=== PATIENT | male | born 1940 | race Caucasian/White ===

== ENCOUNTER → 2016-09-27 | Outpatient (CLI) | payer MEDICARE ==
[2016-09-27 13:12] LABS: Hemoglobin A1C 9.6 % (4.2-6.1)
== END ==
LOC: LABWHC1 09:03
PROVIDERS: ATTEND Internal Medicine Geriatric Medicine
DX: E11.9 Type 2 diabetes mellitus without complications (principal)
CPT/HCPCS: 36415; 83036

== ENCOUNTER → 2017-02-12 | Outpatient (CLI) | payer MEDICARE ==
[2017-02-12 15:46] LABS: ALT 37 U/L (21-72); AST 22 U/L (17-59); Anion Gap 10 mmol/L; Blood Urea Nitrogen 20 mg/dL (9-20); Calcium 8.8 mg/dL (8.4-10.2); Carbon Dioxide 22 mmol/L (22-30); Chloride 103 mmol/L (98-107); Non-African American GFR(MDRD) >60 (>60 ml/min/1.73 sqM); Potassium 4.9 mmol/L (3.5-5.1); Sodium 135 mmol/L (137-145); Total Bilirubin 0.5 mg/dL (0.2-1.3); Total Protein 6.2 g/dL (6.3-8.2)
[2017-02-12 15:47] LABS: Alkaline Phosphatase 80 U/L (38-126); Cholesterol 114 mg/dL (<200); HDL Cholesterol 41 mg/dL (40-60)
[2017-02-12 17:51] LABS: Glucose 310 mg/dL (74-99)
[2017-02-12 18:42] LABS: Urine Creatinine 126.7 mg/dL
== END | disposition home or self-care (01) ==
LOC: LABWHC1 09:32
PROVIDERS: ATTEND Internal Medicine
DX: E10.65 Type 1 diabetes mellitus with hyperglycemia (principal)
CPT/HCPCS: 36415; 80053; 80061; 82043; 82306; 82570; 84439; 84443; 84681

== ENCOUNTER → 2017-03-21 | Outpatient (CLI) | payer MEDICARE ==
[2017-03-25 18:04] LABS: Large VLDL Particle Number,NMR <1.5 nmol/L (<=2.7)
== END | disposition home or self-care (01) ==
LOC: LABWHC1 08:53
PROVIDERS: ATTEND Internal Medicine Cardiovascular Disease
DX: I25.10 Atherosclerotic heart disease of native coronary artery without angina pectoris (principal)
CPT/HCPCS: 36415; 83704

== ENCOUNTER → 2017-06-12 | Outpatient (CLI) | payer MEDICARE ==
[2017-06-12 19:42] LABS: Hemoglobin A1C 8.8 % (4.0-6.0)
== END | disposition home or self-care (01) ==
LOC: LABWHC1 10:08
PROVIDERS: ATTEND Internal Medicine
DX: E10.65 Type 1 diabetes mellitus with hyperglycemia (principal)
CPT/HCPCS: 36415; 83036

== ENCOUNTER → 2017-09-16 | Outpatient (CLI) | payer MEDICARE | END | disposition home or self-care (01) | LOC: LABWHC1 08:35 | PROVIDERS: ATTEND Internal Medicine | DX: E10.65 Type 1 diabetes mellitus with hyperglycemia (principal) | CPT/HCPCS: 36415; 83036 ==

== ENCOUNTER → 2017-12-16 | Outpatient (CLI) | payer MEDICARE ==
[2017-12-16 18:43] LABS: Hemoglobin A1C 8.6 % (4.0-6.0)
== END | disposition home or self-care (01) ==
LOC: LABWHC1 08:44
PROVIDERS: ATTEND Internal Medicine
DX: E10.65 Type 1 diabetes mellitus with hyperglycemia (principal)
CPT/HCPCS: 36415; 83036

== ENCOUNTER → 2018-05-24 | Outpatient (CLI) | payer MEDICARE ==
[2018-05-24 16:27] LABS: Albumin 3.9 g/dL (3.80-4.90); Albumin/Globulin Ratio 1.95 (1.20-2.10); Anion Gap 5.1 mmol/L (4.00-12.00); Carbon Dioxide 26.9 mmol/L (21.6-31.8); LDL Cholesterol,Calculated 57.2 mg/dL (0.0-131.0); Potassium 5.2 mmol/L (3.5-5.5); Total Bilirubin 0.4 mg/dL (0.2-1.2); Total Protein 5.9 g/dL (6.2-8.2); VLDL Calculation 12.8 mg/dL (5.00-40.00)
[2018-05-24 20:22] LABS: Hemoglobin A1C 8.6 % (4.0-6.0)
== END ==
LOC: LABWHC1 09:28
PROVIDERS: ATTEND Internal Medicine
DX: E55.9 Vitamin D deficiency, unspecified (principal); E10.65 Type 1 diabetes mellitus with hyperglycemia; E78.00 Pure hypercholesterolemia, unspecified
CPT/HCPCS: 36415; 80053; 80061; 82043; 82306; 82570; 83036

== ENCOUNTER → 2018-09-09 | Outpatient (CLI) | payer MEDICARE ==
[2018-09-09 16:35] LABS: LDL Cholesterol,Calculated 63.8 mg/dL (0.0-131.0); VLDL Calculation 14.2 mg/dL (5.00-40.00)
== END | disposition home or self-care (01) ==
LOC: LABWHC1 09:04
PROVIDERS: ATTEND Internal Medicine
DX: E10.65 Type 1 diabetes mellitus with hyperglycemia (principal)
CPT/HCPCS: 36415; 80061; 82043; 82570

== ENCOUNTER → 2018-11-13 | Outpatient (CLI) | payer MEDICARE ==
[2018-11-13 17:02] LABS: LDL Cholesterol,Calculated 59.8 mg/dL (0.0-131.0); VLDL Calculation 26.2 mg/dL (5.00-40.00)
[2018-11-13 17:17] LABS: Hemoglobin A1C 8.4 % (4.0-6.0)
== END | disposition home or self-care (01) ==
LOC: LABWHC1 08:15
PROVIDERS: ATTEND Internal Medicine
DX: E10.65 Type 1 diabetes mellitus with hyperglycemia (principal)
CPT/HCPCS: 36415; 80061; 82043; 82570; 83036

== ENCOUNTER → 2019-03-05 | Outpatient (CLI) | payer MEDICARE ==
[2019-03-05 09:38] LABS: Basophils # (A) 0.1 k/uL (0-0.2); Basophils % (A) 1 %; Eosinophils # (A) 0.3 k/uL (0-0.7); Eosinophils % (A) 4 %; HCT 38.7 % (39.0-53.0); HGB 12.2 gm/dL (13.0-17.5); Lymphocytes # (A) 1.3 k/uL (1.0-4.8); Lymphocytes % (A) 17 %; MCH 28.4 pg (25.0-35.0); MCHC 31.6 g/dL (31.0-37.0); MCV 89.9 fL (80.0-100.0); Mean Platelet Volume 6.8; Monocytes # (A) 0.6 k/uL (0-1.0); Monocytes % (A) 7 %; Neutrophils # (A) 5.3 k/uL (1.3-7.7); Neutrophils % (A) 69 %; Platelet Count 218 k/uL (150-450); RDW 14.1 % (11.5-15.5); WBC 7.7 k/uL (3.8-10.6)
[2019-03-05 19:36] LABS: Hemoglobin A1C 9.2 % (4.0-6.0)
[2019-03-06 00:19] LABS: African American GFR (CKD) 75.2 (60.0-200.0); Albumin 4.4 g/dL (3.80-4.90); Albumin/Globulin Ratio 2.1 (1.60-3.17); Anion Gap 9.4 mmol/L (4.00-12.00); BUN/Creat Ratio 18.18 Ratio (12.00-20.00); Calcium 9.2 mg/dL (8.7-10.3); Carbon Dioxide 23.6 mmol/L (21.6-31.8); Chol/HDL Ratio 3.29; Globulin 2.1 g/dL (1.6-3.3); LDL Cholesterol,Calculated 78.8 mg/dL (0.0-131.0); Potassium 5.1 mmol/L (3.5-5.5); Total Bilirubin 0.4 mg/dL (0.3-1.2); Total Protein 6.5 g/dL (6.2-8.2); VLDL Calculation 17.2 mg/dL (5.00-40.00)
== END | disposition home or self-care (01) ==
LOC: LABWHC1 08:46
PROVIDERS: ATTEND Internal Medicine Geriatric Medicine
DX: N40.0 Benign prostatic hyperplasia without lower urinary tract symptoms (principal); I25.10 Atherosclerotic heart disease of native coronary artery without angina pectoris; E08.35 Diabetes mellitus due to underlying condition with proliferative diabetic retinopathy
CPT/HCPCS: 36415; 80053; 80061; 83036; 84153; 84443; 85025

== ENCOUNTER → 2019-06-19 | Outpatient (CLI) | payer MEDICARE ==
[2019-06-19 09:02] LABS: Basophils # (A) 0.1 k/uL (0-0.2); Basophils % (A) 1 %; Eosinophils # (A) 0.2 k/uL (0-0.7); Eosinophils % (A) 2 %; HCT 39.2 % (39.0-53.0); HGB 11.8 gm/dL (13.0-17.5); Hypochromasia Slight; Lymphocytes # (A) 1.4 k/uL (1.0-4.8); Lymphocytes % (A) 16 %; MCH 25.5 pg (25.0-35.0); MCHC 30.2 g/dL (31.0-37.0); MCV 84.7 fL (80.0-100.0); Mean Platelet Volume 8.1; Monocytes # (A) 0.6 k/uL (0-1.0); Monocytes % (A) 7 %; Neutrophils # (A) 6.1 k/uL (1.3-7.7); Neutrophils % (A) 72 %; Platelet Count 184 k/uL (150-450); RBC 4.63 m/uL (4.30-5.90); RDW 14.3 % (11.5-15.5); WBC 8.5 k/uL (3.8-10.6)
[2019-06-19 17:55] LABS: African American GFR (CKD) 67.7 (60.0-200.0); Albumin 4.1 g/dL (3.80-4.90); Albumin/Globulin Ratio 2.41 (1.60-3.17); BUN/Creat Ratio 18.33 Ratio (12.00-20.00); Calcium 8.6 mg/dL (8.7-10.3); Chol/HDL Ratio 3.02; Globulin 1.7 g/dL (1.6-3.3); LDL Cholesterol,Calculated 75.6 mg/dL (0.0-131.0); Non-African American GFR(CKD) 58.4 (60.0-200.0); Potassium 4.4 mmol/L (3.5-5.5); Total Bilirubin 0.5 mg/dL (0.2-1.2); Total Protein 5.8 g/dL (6.2-8.2); VLDL Calculation 15.4 mg/dL (5.00-40.00)
[2019-06-19 18:48] LABS: Hemoglobin A1C 10.4 % (4.0-6.0)
== END | disposition home or self-care (01) ==
LOC: LABWHC1 08:37
PROVIDERS: ATTEND Internal Medicine Geriatric Medicine
DX: I25.10 Atherosclerotic heart disease of native coronary artery without angina pectoris (principal); E11.65 Type 2 diabetes mellitus with hyperglycemia; I35.8 Other nonrheumatic aortic valve disorders; E10.65 Type 1 diabetes mellitus with hyperglycemia
CPT/HCPCS: 36415; 80053; 80061; 83036; 84443; 85025

== ENCOUNTER 2020-04-05 15:18 | Emergency (ER) | payer MEDICARE ==
[2020-04-05 15:28] VITALS: BP 144/71; PULSE 61; RESP 18; TEMP 98
--- NOTE | 2020-04-05 16:06 | XR ---
Left shoulder HISTORY: Trauma and pain 3 views of the left shoulder Acromioclavicular joint shows arthropathy change. There is spurring at the humeral head. Question sma ll ossific density at the level of the bony glenoid may be well-corticated but is only partially visu alized. Joint space loss is suspected at the glenohumeral joint. Left lung apex as visualized is norm al. Patient is post median sternotomy and cardiac valve replacements. IMPRESSION: Osteoarthritis. No definite acute fracture or dislocation. Additional findings above.
--- NOTE | 2020-04-05 16:20 | ED ---
Fall HPI - General Chief Complaint: Fall Stated Complaint: fall/shoulder pain Time Seen by Provider: 04/05/20 15:30 Source: patient Mode of arrival: ambulatory - History of Present Illness Initial Comments: Patient is a 79-year-old male presenting to the emergency Department complains of left shoulder pain after he tripped and fell at home. Patient states he caught his foot on a step and fell over onto his left side. Patient states he is having a hard time moving around his left shoulder. He denies any previous surgeries or injuries. He states he did lightly hit his head on the carpet but his head is not hurting, he had there was no loss of consciousness, he is not on blood thinners. Patient denies any other injuries from this fall other than the left shoulder pain. He has no further complaints at this time. - Related Data Home Medications Medication Instructions Recorded Confirmed Atorvastatin [Lipitor] 10 mg PO HS 10/01/13 05/21/17 Insulin Glargine [Lantus] 16 unit SQ QAM 10/01/13 05/21/17 Insulin Glulisine [Apidra] 0 unit SQ DIRECTED 10/01/13 05/21/17 Aspirin 325 mg PO DAILY 04/03/17 05/21/17 Ibuprofen [Motrin] 200 - 400 mg PO Q6HR PRN 04/03/17 05/21/17 Pioglitazone [Actos] 30 mg PO DAILY 04/03/17 05/21/17 Allergies Allergy/AdvReac Type Severity Reaction Status Date / Time morphine AdvReac Hallucinati Verified 04/05/20 15:28 ons Review of Systems ROS Statement: Those systems with pertinent positive or pertinent negative responses have been documented in the HPI. ROS Other: All systems not noted in ROS Statement are negative. Past Medical History Past Medical History: Coronary Artery Disease (CAD), Chest Pain / Angina, Diabetes Mellitus, Hyperlipidemia Additional Past Medical History / Comment(s): urinary calculus, CATARACTS, NO LONGER ON MEDICATION FOR HTN, HAS HAD "SHOTS IN EYES FROM [facility] SPECIALIST R/T BLEEDING IN EYES" History of Any Multi-Drug Resistant Organisms: None Reported Past Surgical History: Cardiac Valve Replacement, Coronary Bypass/CABG, Joint Replacement, Orthopedic Surgery Additional Past Surgical History / Comment(s): 2 VALVES, AND 3 BYPASSES, CLAVICLE SX , KNEE REPLACEMENT, cataract removed left eye Past Anesthesia/Blood Transfusion Reactions: Previous Problems w/ Anesthesia Additional Past Anesthesia/Blood Transfusion Reaction / Comment(s): "DOESNT ACT HIMSELF, WANTS TO GET UP AND ROAM AROUND" Past Psychological History: No Psychological Hx Reported Smoking Status: Former smoker Past Alcohol Use History: None Reported Past Drug Use History: None Reported - Past Family History Mother Family Medical History: No Reported History General Exam - General Exam Comments Initial Comments: GENERAL: Patient is well-developed and well-nourished. Patient is nontoxic and in no acute distress. HEAD: Atraumatic, normocephalic. EYES: Pupils equal round and reactive to light, extraocular movements intact, sclera anicteric, conjunctiva are normal. Eyelids were unremarkable. ENT: TMs normal, nares patent, oropharynx clear without exudates. Moist mucous membranes. NECK: Normal range of motion, supple without lymphadenopathy or JVD. LUNGS: Unlabored respirations. Breath sounds clear to auscultation bilaterally and equal. No wheezes rales or rhonchi. HEART: Regular rate and rhythm without murmurs, rubs or gallops. ABDOMEN: Soft, nontender, normoactive bowel sounds. No guarding, no rebound. No masses appreciated. : Deferred MUSCULOSKELETAL: Very limited active range of motion of left shoulder joint, he is able to have more motion passively. He has some mild pain with palpation of the anterior portion of the shoulder. No significant deformity or swelling seen. He has neurovascular intact. No clubbing or cyanosis. NEUROLOGICAL: Patient is alert and oriented x 3. Motor and sensory are also intact. Cranial nerves II through XII grossly intact. Symmetrical smile. Normal speech, normal gait. PSYCH: Normal mood, normal affect. SKIN: Warm, Dry, normal turgor, no rashes or lesions noted. Limitations: no limitations Course Vital Signs 04/05/20 15:20 Temperature 98.0 F Pulse Rate 61 Respiratory 18 Rate Blood Pressure 144/71 O2 Sat by Pulse 100 Oximetry Medical Decision Making - Medical Decision Making Patient is a 79-year-old male here with left shoulder pain after he fell on it earlier today. He has very limited active range of motion. No previous surgeries or injuries. Did do an x-ray of the left shoulder which reveals no acute fractures though complications, some spurring of the joint. Patient was placed in a sling for comfort, we'll give him orthopedic follow-up. Recommended Tylenol or Motrin for discomfort. Patient is in agreement with this plan of care. He is stable for discharge. Disposition Clinical Impression: Fall, Left shoulder pain Disposition: HOME SELF-CARE Condition: Stable Instructions (If sedation given, give patient instructions): Shoulder Pain (ED) Additional Instructions: Please return to the Emergency Department if symptoms worsen or any other concerns. X-rays reveal no acute fractures or dislocation of the left shoulder. Take Tylenol or Motrin for discomfort. Wear sling for comfort but may remove for gentle range of motion. Follow-up with orthopedics as discussed. Is patient prescribed a controlled substance at d/c from ED?: No Referrals: Liban Jha MD [Primary Care Provider] - 1-2 days
== END 2020-04-05 16:30 | disposition home or self-care (01) ==
LOC: EC 15:18
DX: M25.512 Pain in left shoulder (principal); E11.36 Type 2 diabetes mellitus with diabetic cataract; E78.5 Hyperlipidemia, unspecified; I25.119 Atherosclerotic heart disease of native coronary artery with unspecified angina pectoris; Z79.899 Other long term (current) drug therapy; Z79.4 Long term (current) use of insulin; Z79.82 Long term (current) use of aspirin; Z88.5 Allergy status to narcotic agent; Z96.659 Presence of unspecified artificial knee joint; Z87.891 Personal history of nicotine dependence
CPT/HCPCS: 99283

== ENCOUNTER → 2020-04-14 | Outpatient (CLI) | payer MEDICARE ==
[2020-04-14 11:47] LABS: Basophils % (A) 0 %; Eosinophils # (A) 0.2 k/uL (0-0.7); Eosinophils % (A) 2 %; HCT 35.3 % (39.0-53.0); HGB 11.1 gm/dL (13.0-17.5); Hypochromasia Slight; Lymphocytes # (A) 1.7 k/uL (1.0-4.8); Lymphocytes % (A) 17 %; MCH 26.1 pg (25.0-35.0); MCHC 31.5 g/dL (31.0-37.0); MCV 82.8 fL (80.0-100.0); Mean Platelet Volume 8.5; Monocytes # (A) 0.7 k/uL (0-1.0); Monocytes % (A) 7 %; Neutrophils # (A) 7.1 k/uL (1.3-7.7); Neutrophils % (A) 72 %; Platelet Count 276 k/uL (150-450); RBC 4.26 m/uL (4.30-5.90); RDW 15.5 % (11.5-15.5)
[2020-04-14 14:53] LABS: African American GFR (CKD) 74.7 (60.0-200.0); Albumin 4.2 g/dL (3.80-4.90); Albumin/Globulin Ratio 2.21 (1.60-3.17); Anion Gap 7.5 mmol/L (4.00-12.00); BUN/Creat Ratio 23.64 Ratio (12.00-20.00); Calcium 9.2 mg/dL (8.7-10.3); Carbon Dioxide 27.5 mmol/L (21.6-31.8); Chol/HDL Ratio 2.98; Globulin 1.9 g/dL (1.6-3.3); LDL Cholesterol,Calculated 75.6 mg/dL (0.0-131.0); Non-African American GFR(CKD) 64.4 (60.0-200.0); Potassium 4.9 mmol/L (3.5-5.5); Total Bilirubin 0.5 mg/dL (0.3-1.2); Total Protein 6.1 g/dL (6.2-8.2); VLDL Calculation 19.4 mg/dL (5.00-40.00)
[2020-04-14 15:01] LABS: Prostate Specific Antigen 1.2 ng/mL (0.0-6.5)
[2020-04-14 16:34] LABS: Hemoglobin A1C 12.3 % (4.0-6.0)
[2020-04-14 17:02] LABS: Urine Creatinine 140.4 mg/dL
== END | disposition home or self-care (01) ==
LOC: LABWHC1 08:51
PROVIDERS: ATTEND Internal Medicine
DX: I25.10 Atherosclerotic heart disease of native coronary artery without angina pectoris (principal); N40.0 Benign prostatic hyperplasia without lower urinary tract symptoms; E08.35 Diabetes mellitus due to underlying condition with proliferative diabetic retinopathy
CPT/HCPCS: 36415; 80053; 80061; 82043; 82570; 83036; 84153; 85025

== ENCOUNTER → 2020-08-05 | Outpatient (CLI) | payer MEDICARE ==
[2020-08-05 11:02] LABS: ALT 18 U/L (4-49); AST 24 U/L (17-59); African American GFR (CKD) 85 (>60 ml/min/1.73 sqM); Albumin 4.1 g/dL (3.5-5.0); Albumin/Globulin Ratio 1.6; Alkaline Phosphatase 76 U/L (38-126); Anion Gap 6 mmol/L; Blood Urea Nitrogen 20 mg/dL (9-20); Calcium 9.5 mg/dL (8.4-10.2); Carbon Dioxide 29 mmol/L (22-30); Chloride 99 mmol/L (98-107); Cholesterol 145 mg/dL (<200); Globulin 2.5 g/dL; Glucose 255 mg/dL (74-99); HDL Cholesterol 50 mg/dL (40-60); LDL Cholesterol,Calculated 78 mg/dL (0-99); Non-African American GFR(CKD) 73 (>60 ml/min/1.73 sqM); Potassium 5.2 mmol/L (3.5-5.1); Sodium 134 mmol/L (137-145); Total Bilirubin 0.5 mg/dL (0.2-1.3); Total Protein 6.6 g/dL (6.3-8.2); Triglycerides 84 mg/dL (<150)
[2020-08-05 19:42] LABS: Basophils # (A) 0.11 X 10*3/uL (0.00-0.10); Basophils % (A) 1.2 %; Eosinophils # (A) 0.16 X 10*3/uL (0.04-0.35); Eosinophils % (A) 1.8 %; HCT 34.1 % (39.6-50.0); HGB 10.4 g/dL (13.0-17.0); Lymphocytes # (A) 1.69 X 10*3/uL (0.90-5.00); Lymphocytes % (A) 18.7 %; MCH 25.9 pg (27.0-32.0); MCHC 30.5 g/dL (32.0-37.0); MCV 84.8 fL (80.0-97.0); Mean Platelet Volume 11.6 fL (9.5-12.2); Monocytes # (A) 1.04 X 10*3/uL (0.20-1.00); Monocytes % (A) 11.5 %; Neutrophils # (A) 5.99 X 10*3/uL (1.80-7.70); Neutrophils % (A) 66.5 %; Platelet Count 303 X 10*3/uL (140-440); RBC 4.02 X 10*6/uL (4.40-5.60); RDW 14.9 % (11.5-14.5); WBC 9.02 X 10*3/uL (4.50-10.00)
== END | disposition home or self-care (01) ==
LOC: LABWHC1 08:57
PROVIDERS: ATTEND Internal Medicine Geriatric Medicine
DX: E11.65 Type 2 diabetes mellitus with hyperglycemia (principal); I25.10 Atherosclerotic heart disease of native coronary artery without angina pectoris
CPT/HCPCS: 36415; 80053; 80061; 83036; 84443; 85025

== ENCOUNTER 2020-08-11 20:24 | Emergency (ER) | payer MEDICARE ==
[2020-08-11 20:34] VITALS: BP 174/94; PULSE 88; RESP 17; TEMP 98
[2020-08-11] MEDS ORDERED: LIDOCAINE 1% INJ 10MG/ML (20 ML MDV) SQ ONE (21:29)
--- NOTE | 2020-08-11 21:46 | ED ---
Head Injury HPI - General Chief complaint: Head Injury Stated complaint: slip & fall/head injury Time Seen by Provider: 08/11/20 21:28 Source: patient Mode of arrival: ambulatory Limitations: no limitations - History of Present Illness Initial comments: 79-year-old male presents emergency Department with chief complaint of laceration. This occurred about 3 hours prior to arrival. Patient reports she was bending over, lost his footing and went forward hitting the ground scraping his head. Patient reports he was advised by his daughter to come to emergency department for evaluation. Patient states he only wants the laceration repaired and is denying any laboratory work or images. He does not want any stitches or bora. He prefers glue. There was no loss of consciousness. No blood thinners. No other symptoms. Tetanus up-to-date. - Related Data Home Medications Medication Instructions Recorded Confirmed Atorvastatin [Lipitor] 10 mg PO HS 10/01/13 05/21/17 Insulin Glargine [Lantus] 16 unit SQ QAM 10/01/13 05/21/17 Insulin Glulisine [Apidra] 0 unit SQ DIRECTED 10/01/13 05/21/17 Aspirin 325 mg PO DAILY 04/03/17 05/21/17 Ibuprofen [Motrin] 200 - 400 mg PO Q6HR PRN 04/03/17 05/21/17 Pioglitazone [Actos] 30 mg PO DAILY 04/03/17 05/21/17 Allergies/Adverse reactions: Allergies Allergy/AdvReac Type Severity Reaction Status Date / Time morphine AdvReac Hallucinati Verified 08/11/20 20:34 ons Review of Systems ROS Statement: Those systems with pertinent positive or pertinent negative responses have been documented in the HPI. ROS Other: All systems not noted in ROS Statement are negative. Past Medical History Past Medical History: Coronary Artery Disease (CAD), Chest Pain / Angina, Diabetes Mellitus, Hyperlipidemia Additional Past Medical History / Comment(s): urinary calculus, CATARACTS, NO LONGER ON MEDICATION FOR HTN, HAS HAD "SHOTS IN EYES FROM [facility]INAL SPECIALIST R/T BLEEDING IN EYES" History of Any Multi-Drug Resistant Organisms: None Reported Past Surgical History: Cardiac Valve Replacement, Coronary Bypass/CABG, Joint Replacement, Orthopedic Surgery Additional Past Surgical History / Comment(s): 2 VALVES, AND 3 BYPASSES, CLAVICLE SX , KNEE REPLACEMENT, cataract removed left eye Past Anesthesia/Blood Transfusion Reactions: Previous Problems w/ Anesthesia Additional Past Anesthesia/Blood Transfusion Reaction / Comment(s): "DOESNT ACT HIMSELF, WANTS TO GET UP AND ROAM AROUND" Past Psychological History: No Psychological Hx Reported Smoking Status: Former smoker Past Alcohol Use History: None Reported Past Drug Use History: None Reported - Past Family History Mother Family Medical History: No Reported History General Exam Limitations: no limitations General appearance: alert, in no apparent distress Head exam: Present: normocephalic, normal inspection. Absent: atraumatic (2cm laceration of the forehead with mild hematoma), other (Negative Garnica sign, raccoon eyes, hemotympanum.) Eye exam: Present: normal appearance, PERRL, EOMI Pupils: Present: normal accommodation ENT exam: Present: normal exam, normal oropharynx, mucous membranes moist Neck exam: Present: normal inspection, full ROM. Absent: tenderness Respiratory exam: Present: normal lung sounds bilaterally. Absent: respiratory distress Cardiovascular Exam: Present: regular rate, normal rhythm, normal heart sounds Extremities exam: Present: normal inspection, full ROM, normal capillary refill Back exam: Present: normal inspection, full ROM. Absent: tenderness Neurological exam: Present: alert, oriented X3, CN II-XII intact, normal gait Psychiatric exam: Present: normal affect, normal mood Skin exam: Present: warm, dry, intact, normal color Course Vital Signs 08/11/20 20:29 Temperature 98.0 F Pulse Rate 88 Respiratory 17 Rate Blood Pressure 174/94 O2 Sat by Pulse 98 Oximetry Procedures - Laceration Laceration #1 Consent Obtained: verbal consent Indication: laceration Site: scalp Size (cm): 2 Description: linear, clean Depth: simple, single layer Sedation/Analgesia: none Pre-repair: irrigated extensively, deep structures intact Type of Sutures: other (Steri-Strip) Size of Sutures: other (Steri-Strip) Technique: other (Steri-Strip) Patient Tolerated Procedure: well, no complications Medical Decision Making - Medical Decision Making 79-year-old male presents to emergency Department with chief complaint of laceration. Patient was offered CT imaging, he declined. I offered to put stitches or bora, he declined. Patient is requesting glue. I do not believe the tissue adhesive would hold well in this case. I applied multiple Steri- Strips which seemed to be holding the superficial laceration in place. His tetanus is up-to-date. Return parameters discussed the patient was understanding of-year-old. Case discussed with Dr. Jarvis. Disposition Clinical Impression: Laceration, Head injury Disposition: HOME SELF-CARE Condition: Stable Instructions (If sedation given, give patient instructions): Laceration (DC) Additional Instructions: Please return to the Emergency Department if symptoms worsen or any other home rns. Is patient prescribed a controlled substance at d/c from ED?: No Referrals: Liban Jha MD [Primary Care Provider] - 1-2 days Time of Disposition: 21:46
== END 2020-08-11 21:56 | disposition home or self-care (01) ==
LOC: EC 20:24
DX: S01.01XA Laceration without foreign body of scalp, initial encounter (principal); E78.5 Hyperlipidemia, unspecified; I25.10 Atherosclerotic heart disease of native coronary artery without angina pectoris; Z79.1 Long term (current) use of non-steroidal anti-inflammatories (NSAID); Z79.4 Long term (current) use of insulin; Z79.82 Long term (current) use of aspirin; Z87.891 Personal history of nicotine dependence; W22.8XXA Striking against or struck by other objects, initial encounter
CPT/HCPCS: 99283

== ENCOUNTER → 2020-12-20 | Outpatient (CLI) | payer MEDICARE ==
[2020-12-20 18:21] LABS: African American GFR (CKD) 83.2 (60.0-200.0); Anion Gap 5.8 mmol/L (4.00-12.00); Carbon Dioxide 27.2 mmol/L (21.6-31.8); Chol/HDL Ratio 2.62; LDL Cholesterol,Calculated 62.6 mg/dL (0.0-131.0); Non-African American GFR(CKD) 71.8 (60.0-200.0); Potassium 4.6 mmol/L (3.5-5.5); VLDL Calculation 13.4 mg/dL (5.00-40.00)
[2020-12-20 18:53] LABS: Hemoglobin A1C 10.4 % (4.0-6.0)
[2020-12-20 22:24] LABS: Urine Creatinine 140.5 mg/dL
== END | disposition home or self-care (01) ==
LOC: LABWHC1 08:51
PROVIDERS: ATTEND Family Medicine
DX: E11.65 Type 2 diabetes mellitus with hyperglycemia (principal); E55.9 Vitamin D deficiency, unspecified
CPT/HCPCS: 36415; 80048; 80061; 82043; 82306; 82570; 83036

== ENCOUNTER → 2021-05-11 | Outpatient (CLI) | payer MEDICARE | END | disposition home or self-care (01) | LOC: LABWHC1 08:40 | PROVIDERS: ATTEND Family Medicine | DX: E11.65 Type 2 diabetes mellitus with hyperglycemia (principal) | CPT/HCPCS: 36415; 83036 ==

== ENCOUNTER → 2021-07-12 | Outpatient (CLI) | payer MEDICARE ==
[2021-07-12 18:43] LABS: HCT 35.1 % (39.6-50.0); HGB 10.6 g/dL (13.0-17.0); MCH 25.7 pg (27.0-32.0); MCHC 30.2 g/dL (32.0-37.0); Mean Platelet Volume 11.1 fL (9.5-12.2); NRBC Per 100 WBC 0 /100 WBCS (0.0-0.0); Platelet Count 262 X 10*3/uL (140-440); RBC 4.13 X 10*6/uL (4.40-5.60); RDW 15.6 % (11.5-14.5); WBC 7.55 X 10*3/uL (4.50-10.00)
[2021-07-12 18:54] LABS: ALT 21 U/L (10-49); AST 28 U/L (14-35); African American GFR (CKD) 74.1 (60.0-200.0); Albumin/Globulin Ratio 1.54 (1.60-3.17); Alkaline Phosphatase 75 U/L (41-126); BUN/Creat Ratio 15.09 Ratio (12.00-20.00); Blood Urea Nitrogen 16.6 mg/dL (9.0-27.0); Calcium 9.3 mg/dL (8.7-10.3); Carbon Dioxide 23.1 mmol/L (20.0-27.5); Chloride 100 mmol/L (96-109); Chol/HDL Ratio 2.47 Ratio; Globulin 2.6 g/dL (1.6-3.3); Glucose 115 mg/dL (70-110); Potassium 5.2 mmol/L (3.5-5.5); Sodium 135 mmol/L (135-145); Total Protein 6.6 g/dL (6.2-8.2); VLDL Calculation 11.58 mg/dL (5.00-40.00)
[2021-07-13 06:07] LABS: C-Peptide 2.06 ng/mL (0.81-3.85)
== END | disposition home or self-care (01) ==
LOC: LABWHC1 09:48
PROVIDERS: ATTEND Family Medicine
DX: E11.65 Type 2 diabetes mellitus with hyperglycemia (principal); E55.9 Vitamin D deficiency, unspecified
CPT/HCPCS: 36415; 80053; 80061; 82043; 82306; 82570; 83036; 84443; 84681; 85027

== ENCOUNTER 2021-08-30 10:15 | Emergency (ER) | payer MEDICARE ==
[2021-08-30 10:21] VITALS: BP 164/89; PULSE 64; RESP 18; TEMP 97
--- NOTE | 2021-08-30 10:56 | ED ---
General Adult HPI - General Chief complaint: Fall Stated complaint: Fall Time Seen by Provider: 08/30/21 10:25 Source: patient Mode of arrival: wheelchair Limitations: no limitations - History of Present Illness Initial comments: This 80-year-old male past medical history of CAD, diabetes mellitus and hyperlipidemia presents emergency department with lower back pain and left hip pain after a fall in the [employer] parking lot this morning. Patient states he was going to step up to walk into [employer] when he slipped on a piece of ice, causing him to fall backwards onto his lower back. Patient states he has also been being assessed by [facility] over the last year due to left hip pain and states that after the fall but the pain seems to be a little bit worse. Patient states he does have an appointment for his left hip next week. Patient states he currently has Tylenol 3 for his left hip pain. Patient states his lower back pain is worse on the left side and worse when it is palpated. Patient denies being on any blood thinners, denies loss of consciousness and denies hitting his head. Patient denies any radicular pain or loss of sensation. Patient denies any chest pain or shortness of breath, abdominal pain, nausea, vomiting, change in bowel or bladder, saddle anesthesia headache, lightheadedness, dizziness, change in vision. - Related Data Home Medications Medication Instructions Recorded Confirmed Atorvastatin [Lipitor] 10 mg PO HS 10/01/13 05/21/17 Insulin Glargine [Lantus Vial] 16 unit SQ QAM 10/01/13 05/21/17 Insulin Glulisine [Apidra] 0 unit SQ DIRECTED 10/01/13 05/21/17 Aspirin 325 mg PO DAILY 04/03/17 05/21/17 Ibuprofen [Motrin] 200 - 400 mg PO Q6HR PRN 04/03/17 05/21/17 Pioglitazone [Actos] 30 mg PO DAILY 04/03/17 05/21/17 Allergies Allergy/AdvReac Type Severity Reaction Status Date / Time morphine AdvReac Hallucinati Verified 08/30/21 10:21 ons Review of Systems ROS Statement: Those systems with pertinent positive or pertinent negative responses have been documented in the HPI. ROS Other: All systems not noted in ROS Statement are negative. Past Medical History Past Medical History: Coronary Artery Disease (CAD), Chest Pain / Angina, Diabetes Mellitus, Hyperlipidemia Additional Past Medical History / Comment(s): urinary calculus, CATARACTS, NO LONGER ON MEDICATION FOR HTN, HAS HAD "SHOTS IN EYES FROM RETINAL SPECIALIST R/T BLEEDING IN EYES" History of Any Multi-Drug Resistant Organisms: None Reported Past Surgical History: Cardiac Valve Replacement, Coronary Bypass/CABG, Joint Replacement, Orthopedic Surgery Additional Past Surgical History / Comment(s): 2 VALVES, AND 3 BYPASSES, CLAVI DANNY SX , KNEE REPLACEMENT, cataract removed left eye Past Anesthesia/Blood Transfusion Reactions: Previous Problems w/ Anesthesia Additional Past Anesthesia/Blood Transfusion Reaction / Comment(s): "DOESNT ACT HIMSELF, WANTS TO GET UP AND ROAM AROUND" Past Psychological History: No Psychological Hx Reported Smoking Status: Former smoker Past Alcohol Use History: None Reported Past Drug Use History: None Reported - Past Family History Mother Family Medical History: No Reported History General Exam Limitations: no limitations General appearance: alert, in no apparent distress Head exam: Present: atraumatic, normocephalic, normal inspection Eye exam: Present: normal appearance, PERRL, EOMI. Absent: scleral icterus, conjunctival injection, periorbital swelling Pupils: Present: normal accommodation ENT exam: Present: normal exam, mucous membranes moist Neck exam: Present: normal inspection, full ROM. Absent: tenderness, meningismus, lymphadenopathy Respiratory exam: Present: normal lung sounds bilaterally. Absent: respiratory distress, wheezes, rales, rhonchi, stridor Cardiovascular Exam: Present: regular rate, normal rhythm, normal heart sounds. Absent: systolic murmur, diastolic murmur, rubs, gallop, clicks GI/Abdominal exam: Present: soft, normal bowel sounds. Absent: distended, tenderness, guarding, rebound, rigid Extremities exam: Present: normal inspection, full ROM, normal capillary refill, other (DP pulses intact bilaterally. No loss of sensation to either lower extremity, ankle or foot. Patient with mild tenderness to lateral side of left hip.). Absent: tenderness, pedal edema, joint swelling, calf tenderness Back exam: Present: normal inspection, full ROM, paraspinal tenderness (Lumbar paraspinal tenderness on left side. No vertebral tenderness.). Absent: CVA tenderness (R), CVA tenderness (L), vertebral tenderness Neurological exam: Present: alert, oriented X3, CN II-XII intact, normal gait Psychiatric exam: Present: normal affect, normal mood Skin exam: Present: warm, dry, intact, normal color. Absent: rash Course Vital Signs 08/30/21 10:16 Temperature 97.0 F L Pulse Rate 64 Respiratory 18 Rate Blood Pressure 164/89 Medical Decision Making - Medical Decision Making This 80-year-old male presents emergency Department after a slip and fall this morning in the [employer] parking lot. Lumbosacral x-ray and left hip and pelvis x-ray without any acute abnormalities, dislocation or fractures seen. Patient does see an orthopedic doctor for his left hip and does have an appointment next week. Instructed patient to follow-up with his primary care provider along with attending is orthopedic appointment next week. Instructed patient to remove lidocaine patch in 12 hours. Patient states he does have Tylenol 3 at home due to his left hip pain and I instruct him to take that as directed. Strict return precautions were discussed. Patient verbally agreed to plan. Patient sent home in stable condition. Case discussed in detail with my attending, Dr. Jarvis - Radiology Data Radiology results: report reviewed, image reviewed Disposition Clinical Impression: Fall, Left hip pain, Low back strain Disposition: HOME SELF-CARE Condition: Stable Instructions (If sedation given, give patient instructions): Fall Prevention for Older Adults (ED), Low Back Strain (ED), Lower Back Exercises (ED) Additional Instructions: Please follow-up at your orthopedic appointment next week. Follow up with her primary care provider in next 24-48 hours. Remove lidocaine patch in 12 hours. Return to the emergency department with any new, worsening or concerning symptoms. Is patient prescribed a controlled substance at d/c from ED?: No Referrals: Liban Jha MD [Primary Care Provider] - 1-2 days Time of Disposition: 11:48
--- NOTE | 2021-08-30 11:34 | XR ---
EXAMINATION TYPE: XR Hip LT and AP Pelvis DATE OF EXAM: 08/30/2021 COMPARISON: NONE HISTORY: Trauma and pain TECHNIQUE: A single AP view of the pelvis is obtained. Two views of the left hip are obtained. FINDINGS: There is no acute fracture/dislocation evident in the pelvis. The hip and sacroiliac join ts appear symmetric and unremarkable. The overlying soft tissue appears unremarkable. Two views of left hip show no acute fracture or dislocation. There is some remodeling of the femoral heads left greater than right system with some underlying osteoarthritis. No focal lytic or scleroti c lesion seen in the proximal left femur. Calcification at the level of insertion of the tendons at the greater trochanter suggests calcific tendinitis. The overlying soft tissue is unremarkable. Dege nerative disc changes, slight spinal curvature noted in the lower lumbar spine. Vascular calcificatio ns noted incidentally. IMPRESSION: There is no acute fracture or dislocation in the pelvis or left hip.
--- NOTE | 2021-08-30 11:36 | XR ---
No sacral spine HISTORY: Trauma and pain 5 views of lumbosacral spine There is a levoscoliosis centered at L3. Multilevel spondylosis is present. There is no evident spond ylolysis or spondylolisthesis. Loss of disc height is present at intervertebral levels, there is mult ilevel vacuum disc phenomenon. Sclerosis present in the posterior elements. Lumbar vertebral bodies s how preserved height and bone mineralization. Dense vascular calcifications are noted incidentally. IMPRESSION: Degenerative disc disease, facet arthropathy. No evident acute fracture or subluxation. S mary alice curvature.
[2021-08-30] MEDS ORDERED: LIDOCAINE 5% PATCH TOPICAL SCH (12:00)
== END 2021-08-30 12:05 | disposition home or self-care (01) ==
LOC: EC 10:15
DX: S39.012A Strain of muscle, fascia and tendon of lower back, initial encounter (principal); M25.552 Pain in left hip; E11.9 Type 2 diabetes mellitus without complications; I25.10 Atherosclerotic heart disease of native coronary artery without angina pectoris; E78.5 Hyperlipidemia, unspecified; Z87.891 Personal history of nicotine dependence; Z79.84 Long term (current) use of oral hypoglycemic drugs; Z79.4 Long term (current) use of insulin; Z79.899 Other long term (current) drug therapy; W00.0XXA Fall on same level due to ice and snow, initial encounter; Y92.481 Parking lot as the place of occurrence of the external cause
CPT/HCPCS: 72110; 73502; 99284

== ENCOUNTER 2021-09-11 09:13 | Emergency (ER) | payer MEDICARE ==
[2021-09-11] MEDS ORDERED: SODIUM CHLORIDE 0.9% 1,000 ML IV STA (09:30)
[2021-09-11] MEDS ORDERED: ONDANSETRON 4 MG/2 ML VIAL IVP STA (09:30)
[2021-09-11] MEDS ORDERED: KETOROLAC 15 MG/ML 1 ML VIAL IVP STA (09:30)
--- NOTE | 2021-09-11 09:46 | ED ---
Abdominal Pain HPI - General Chief Complaint: Abdominal Pain Stated Complaint: kidney stones Time Seen by Provider: 09/11/21 09:21 Source: patient, RN notes reviewed Mode of arrival: wheelchair Limitations: no limitations - History of Present Illness Initial Comments: 80-year-old male presents emergency Department with chief complaint of left flank pain. Patient states started a few days ago they initially about is from his hip but states pains into much worse today. Patient states that it feels more related to acute sinusitis extremities the past. No dysuria no hematuria no diarrhea no constipation today. Patient states that nothing really makes the pain feel better states movement does make it worse. Patient denies any pain in his leg denies any bowel bladder incontinence or retention. - Related Data Home Medications Medication Instructions Recorded Confirmed Atorvastatin [Lipitor] 10 mg PO HS 10/01/13 05/21/17 Insulin Glargine [Lantus Vial] 16 unit SQ QAM 10/01/13 05/21/17 Insulin Glulisine [Apidra] 0 unit SQ DIRECTED 10/01/13 05/21/17 Aspirin 325 mg PO DAILY 04/03/17 05/21/17 Ibuprofen [Motrin] 200 - 400 mg PO Q6HR PRN 04/03/17 05/21/17 Pioglitazone [Actos] 30 mg PO DAILY 04/03/17 05/21/17 Previous Rx's Medication Instructions Recorded HYDROcodone/APAP 5-325MG [[place] 5] 1 each PO Q6HR PRN #12 tab 09/11/21 Allergies Allergy/AdvReac Type Severity Reaction Status Date / Time morphine AdvReac Hallucinati Verified 08/30/21 10:21 ons Review of Systems ROS Statement: Those systems with pertinent positive or pertinent negative responses have been documented in the HPI. ROS Other: All systems not noted in ROS Statement are negative. Past Medical History Past Medical History: Coronary Artery Disease (CAD), Chest Pain / Angina, Diabetes Mellitus, Hyperlipidemia Additional Past Medical History / Comment(s): urinary calculus, CATARACTS, NO LONGER ON MEDICATION FOR HTN, HAS HAD "SHOTS IN EYES FROM RETINAL SPECIALIST R/T BLEEDING IN EYES" History of Any Multi-Drug Resistant Organisms: None Reported Past Surgical History: Cardiac Valve Replacement, Coronary Bypass/CABG, Joint Replacement, Orthopedic Surgery Additional Past Surgical History / Comment(s): 2 VALVES, AND 3 BYPASSES, CLAVICLE SX , KNEE REPLACEMENT, cataract removed left eye Past Anesthesia/Blood Transfusion Reactions: Previous Problems w/ Anesthesia Additional Past Anesthesia/Blood Transfusion Reaction / Comment(s): "DOESNT ACT HIMSELF, WANTS TO GET UP AND ROAM AROUND" Past Psychological History: No Psychological Hx Reported Smoking Status: Former smoker Past Alcohol Use History: None Reported Past Drug Use History: None Reported - Past Family History Mother Family Medical History: No Reported History General Exam Limitations: no limitations General appearance: alert, in no apparent distress Head exam: Present: atraumatic, normocephalic, normal inspection Eye exam: Present: normal appearance, PERRL, EOMI. Absent: scleral icterus, conjunctival injection, periorbital swelling ENT exam: Present: normal exam, normal oropharynx, mucous membranes moist Neck exam: Present: normal inspection, full ROM. Absent: tenderness, meningismus, lymphadenopathy Respiratory exam: Present: normal lung sounds bilaterally. Absent: respiratory distress, wheezes, rales, rhonchi, stridor Cardiovascular Exam: Present: regular rate, normal rhythm, normal heart sounds. Absent: systolic murmur, diastolic murmur, rubs, gallop, clicks GI/Abdominal exam: Present: soft, tenderness (Left flank), normal bowel sounds. Absent: distended, guarding, rebound, rigid Back exam: Present: CVA tenderness (L). Absent: CVA tenderness (R) Neurological exam: Present: alert, oriented X3 Skin exam: Present: warm, dry, intact, normal color. Absent: rash Course Vital Signs 09/11/21 09/11/21 09:14 09:43 Temperature 97.3 F L Pulse Rate 81 74 Respiratory 16 18 Rate Blood Pressure 152/89 157/75 O2 Sat by Pulse 98 96 Oximetry Medical Decision Making - Medical Decision Making Lab work, CT and urinalysis. Patient did have mild dehydration. Patient was hydrated, given Toradol and antiemetics feels improved. I do believe pain drainage from his back, left hip is scheduled for physical therapy. Patient will return for any worsening symptoms. Family updated and results agree to plan. - Lab Data Result diagrams: 09/11/21 09:33 09/11/21 09:33 Lab Results 09/11/21 09/11/21 09/11/21 Range/Units 09:33 09:33 10:30 WBC 10.1 (3.8-10.6) k/uL RBC 4.90 (4.30-5.90) m/uL Hgb 13.5 (13.0-17.5) gm/dL Hct 41.5 (39.0-53.0) % MCV 84.7 (80.0-100.0) fL MCH 27.5 (25.0-35.0) pg MCHC 32.5 (31.0-37.0) g/dL RDW 16.6 H (11.5-15.5) % Plt Count 309 (150-450) k/uL MPV 8.7 Neutrophils % 82 % Lymphocytes % 9 % Monocytes % 7 % Eosinophils % 0 % Basophils % 0 % Neutrophils # 8.3 H (1.3-7.7) k/uL Lymphocytes # 1.0 (1.0-4.8) k/uL Monocytes # 0.7 (0-1.0) k/uL Eosinophils # 0.0 (0-0.7) k/uL Basophils # 0.0 (0-0.2) k/uL Anisocytosis Slight Sodium 129 L (137-145) mmol/L Potassium 4.9 (3.5-5.1) mmol/L Chloride 93 L (98-107) mmol/L Carbon Dioxide 23 (22-30) mmol/L Anion Gap 13 mmol/L BUN 19 (9-20) mg/dL Creatinine 0.98 (0.66-1.25) mg/dL Est GFR (CKD-EPI)AfAm 86 (>60 ml/min/1.73 sqM) Est GFR (CKD-EPI)NonAf 74 (>60 ml/min/1.73 sqM) Glucose 245 H (74-99) mg/dL Calcium 9.2 (8.4-10.2) mg/dL Total Bilirubin 1.0 (0.2-1.3) mg/dL AST 29 (17-59) U/L ALT 23 (4-49) U/L Alkaline Phosphatase 114 (38-126) U/L Total Protein 7.6 (6.3-8.2) g/dL Albumin 4.3 (3.5-5.0) g/dL Amylase 68 (30-110) U/L Lipase 23 (23-300) U/L Urine Color Light Yellow Urine Appearance Clear (Clear) Urine pH 6.0 (5.0-8.0) Ur Specific [place] 1.006 (1.001-1.035) Urine Protein Trace H (Negative) Urine Glucose (UA) 2+ H (Negative) Urine Ketones 1+ H (Negative) Urine Blood Negative (Negative) Urine Nitrite Negative (Negative) Urine Bilirubin Negative (Negative) Urine Urobilinogen <2.0 (<2.0) mg/dL Ur Leukocyte Esterase Negative (Negative) Disposition Clinical Impression: Left hip pain, Low back pain, Nausea Disposition: HOME SELF-CARE Condition: Stable Instructions (If sedation given, give patient instructions): Back Pain (ED) Additional Instructions: Please return to the Emergency Department if symptoms worsen or any other concerns. Prescriptions: HYDROcodone/APAP 5-325MG [[place] 5] 1 each PO Q6HR PRN #12 tab PRN Reason: Pain Is patient prescribed a controlled substance at d/c from ED?: Yes Referrals: Liban Jha MD [Primary Care Provider] - 1-2 days Time of Disposition: 11:45
[2021-09-11 09:47] VITALS: RESP 18
[2021-09-11 09:56] LABS: Albumin 4.3 g/dL (3.5-5.0); Calcium 9.2 mg/dL (8.4-10.2); Potassium 4.9 mmol/L (3.5-5.1); Total Protein 7.6 g/dL (6.3-8.2)
[2021-09-11 11:09] LABS: Appearance,Urine Clear (Clear); Bilirubin,Urine Negative (Negative); Blood,Urine Negative (Negative); Color,Urine Light Yellow; Glucose,Urine (UA) 2+ (Negative); Ketones,Urine 1+ (Negative); Leukocyte Esterase,Urine Negative (Negative); Nitrite,Urine Negative (Negative); Protein,Urine Trace (Negative); Specific Gravity,Urine 1.006 (1.001-1.035); Urobilinogen,Urine <2.0 mg/dL (<2.0)
--- NOTE | 2021-09-11 11:17 | CT ---
EXAMINATION TYPE: CT abdomen pelvis wo con DATE OF EXAM: 09/11/2021 COMPARISON: No previous CT scan is available for comparison HISTORY: Left side abdominal pain CT DLP: 513.6 mGycm Automated exposure control for dose reduction was used. TECHNIQUE: Helical acquisition of images was performed from the lung bases through the pelvis. FINDINGS: Artifactual images. LUNG BASES: Bilateral basal pulmonary reticulations and dependent densities. Cardiomegaly. Coronary a rterial calcifications. LIVER/GB: No definite hepatic lesion by this nonenhanced CT scan. Dependent densities within the gall bladder, possibly representing calculi. No evidence of acute cholecystitis. PANCREAS: Small and atrophic with fatty infiltration. SPLEEN: Small ADRENALS: Grossly unremarkable KIDNEYS: Nonspecific bilateral perinephric fat stranding and minimal reactive fluid. No definite radi odense urinary calculi. No hydroureter or hydronephrosis. FREE AIR: No free air is visualized RETROPERITONEAL ADENOPATHY: None visualized REPRODUCTIVE ORGANS: Enlarged prostate, please correlate with PSA level. Unremarkable seminal vesicle s. URINARY BLADDER: No significant abnormality is seen. PELVIC ADENOPATHY: None visualized. OSSEOUS STRUCTURES: Degenerative changes of the lower thoracic and lumbar spine with multilevel spin al canal stenosis and neuroforaminal stenosis. Further MRI assessment can be considered. BOWEL: Sizable hiatal hernia containing the gastric fundus and part of the gastric body. Unremarkabl e remainder of the stomach, duodenum and small bowel. No evidence of bowel obstruction. Tvys-go-[id number] ate fecal loading of the colon. No gross colonic abnormality otherwise. OTHER: Scattered arterial atherosclerotic calcifications. No sizable ascites. Suspected right scrotal hydrocele. IMPRESSION: Nonspecific bilateral perinephric fat stranding and minimal reactive fluid, please correlate with skyla al function tests and urinalysis results. Otherwise no definite acute abnormality seen in the abdomen or the pelvis. Incidental findings as described above.
[2021-09-11 11:20] LABS: Anisocytosis Slight; Basophils % (A) 0 %; Eosinophils % (A) 0 %; HCT 41.5 % (39.0-53.0); HGB 13.5 gm/dL (13.0-17.5); Lymphocytes % (A) 9 %; MCH 27.5 pg (25.0-35.0); MCHC 32.5 g/dL (31.0-37.0); MCV 84.7 fL (80.0-100.0); Mean Platelet Volume 8.7; Monocytes # (A) 0.7 k/uL (0-1.0); Monocytes % (A) 7 %; Neutrophils # (A) 8.3 k/uL (1.3-7.7); Neutrophils % (A) 82 %; Platelet Count 309 k/uL (150-450); RDW 16.6 % (11.5-15.5); WBC 10.1 k/uL (3.8-10.6)
[2021-09-11] MEDS ORDERED: HYDROcodone/APAP 5-325MG 1 EACH TAB PO STA (11:41)
[2021-09-11] MEDS ORDERED: METOCLOPRAMIDE 5 MG/ML 2 ML VIAL IVP STA (11:41)
[2021-09-11 12:08] VITALS: BP 145/82; PULSE 91; TEMP 97.7
== END 2021-09-11 12:15 | disposition home or self-care (01) ==
LOC: EC 09:13
DX: R11.0 Nausea (principal); M54.59 Other low back pain; M25.552 Pain in left hip; I25.10 Atherosclerotic heart disease of native coronary artery without angina pectoris; E11.9 Type 2 diabetes mellitus without complications; E78.5 Hyperlipidemia, unspecified; Z79.4 Long term (current) use of insulin; Z79.82 Long term (current) use of aspirin; Z88.5 Allergy status to narcotic agent; Z87.442 Personal history of urinary calculi; Z95.1 Presence of aortocoronary bypass graft; Z87.891 Personal history of nicotine dependence
CPT/HCPCS: 99284; 96374; 96375 ×2; 96361; 36415; 80053; 82150; 83690; 85025; 81003; 74176; J2765; J2405; J1885

== ENCOUNTER → 2021-11-08 | Outpatient (CLI) | payer MEDICARE | END | disposition home or self-care (01) | LOC: LABWHC1 11:46 | PROVIDERS: ATTEND Family Medicine | DX: E11.65 Type 2 diabetes mellitus with hyperglycemia (principal) | CPT/HCPCS: 36415; 83036 ==

== ENCOUNTER 2022-02-16 19:36 | Emergency (ER) | payer MEDICARE ==
[2022-02-16 20:34] VITALS: BP 123/55; PULSE 56; RESP 16; TEMP 98
--- NOTE | 2022-02-16 22:04 | CT ---
EXAMINATION TYPE: CT brain [place] wo con DATE OF EXAM: 02/16/2022 COMPARISON: CT brain from 2014 HISTORY: Fall. Hematoma to forehead. CT DLP: 1422.1 mGycm Automated exposure control for dose reduction was used. Images of the brain and cervical spine obtained with no contrast. There is cerebral cortical atrophy. There is hypodensity in the periventricular white matter. There i s no mass effect nor midline shift. No sign of intracranial hemorrhage. There is intact calvarium. Sk ull base is intact. There is normal aeration of the mastoid sinuses. The cervical vertebra have normal alignment. There is degenerative disc space narrowing at C5-6 and C 6-7 with spurring of the endplates. There is mild cervical facet arthropathy. No compression fracture . There is no cervical paraspinal mass. IMPRESSION: Spondylotic changes in the cervical spine. No fracture. Cerebral atrophy and chronic small vessel ischemia. No acute intracranial abnormality. There is progr ession of white matter disease compared to old exam.
--- NOTE | 2022-02-17 01:10 | CT ---
EXAMINATION TYPE: CT facial bones wo con DATE OF EXAM: 02/17/2022 COMPARISON: None HISTORY: fall CT DLP: 436.1 mGycm Automated exposure control for dose reduction was used. Images obtained from the bottom of the mandible to the top of the frontal sinuses with no contrast. The mandibular ring is intact. Temporomandibular joints are intact. Zygomatic arches appear normal. T he nasal bone is intact. Orbital margins are intact. No evidence of retro-orbital mass. Sella turcica is normal. There is mild right frontal scalp soft tissue swelling. There is no evidence of orbital blowout fracture. There is mucous retention cyst in the right maxilla ry sinus. IMPRESSION: No fracture seen. There is right frontal scalp soft tissue swelling. Mucous retention cyst right maxi llary sinus.
--- NOTE | 2022-02-17 01:20 | XR ---
EXAMINATION TYPE: XR chest 1V DATE OF EXAM: 02/17/2022 COMPARISON: 10/03/2013 HISTORY: Fall. Pain TECHNIQUE: Single view FINDINGS: There is hiatal hernia. Heart size is normal. Lungs are clear of infiltrate. No pleural eff usion. There are sternal wires. IMPRESSION: Hiatal hernia. No active cardiopulmonary disease. Normal heart. There is clearing of the small pleural effusions compared to old exam.
--- NOTE | 2022-02-17 01:22 | XR ---
EXAMINATION TYPE: XR pelvis AP view DATE OF EXAM: 02/17/2022 COMPARISON: NONE HISTORY: Pain TECHNIQUE: Single view FINDINGS: The pelvic ring is intact. Proximal femurs and hip joints are intact. No hip dysplasia. Sac roiliac joints are intact. IMPRESSION: Negative pelvis x-ray exam. No fracture seen.
[2022-02-17] MEDS ORDERED: LIDOCAINE 1% INJ 10MG/ML (20 ML MDV) SQ ONE (02:02)
[2022-02-17] MEDS ORDERED: DIPH,PERTUS(ACELL)TETVAC-LF 0.5 ML VIAL IM ONE (02:02)
[2022-02-17] MEDS ORDERED: BACITRACIN OINT 1 EACH PACKET TOPICAL ONE (02:02)
--- NOTE | 2022-02-17 04:56 | ED ---
General Adult HPI - General Chief complaint: Fall Stated complaint: fell hit head Time Seen by Provider: 02/17/22 01:39 Source: patient, RN notes reviewed Mode of arrival: ambulatory Limitations: no limitations - History of Present Illness Initial comments: 81-year-old male presents to the emergency department for evaluation of injury sustained in a fall this evening. 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 Patient states he stumbled several steps before falling onto pavement. Patient states he did strike his head on the pavement but did not experience any loss of consciousness. Does have abrasions to bilateral lower extremities and right upper extremity. Complains of injury to the upper lip. Was able to get himself up off the ground and has been ambulatory since. Patient does not take any blood thinning medications. Denies any other injuries at this time. - Related Data Home Medications Medication Instructions Recorded Confirmed Atorvastatin [Lipitor] 10 mg PO HS 10/01/13 05/21/17 Insulin Glargine [Lantus Vial] 16 unit SQ QAM 10/01/13 05/21/17 Insulin Glulisine [Apidra] 0 unit SQ DIRECTED 10/01/13 05/21/17 Aspirin 325 mg PO DAILY 04/03/17 05/21/17 Ibuprofen [Motrin] 200 - 400 mg PO Q6HR PRN 04/03/17 05/21/17 Pioglitazone [Actos] 30 mg PO DAILY 04/03/17 05/21/17 Previous Rx's Medication Instructions Recorded HYDROcodone/APAP 5-325MG [[place] 5] 1 each PO Q6HR PRN #12 tab 09/11/21 Allergies Allergy/AdvReac Type Severity Reaction Status Date / Time morphine AdvReac Hallucinati Verified 02/16/22 20:33 ons Review of Systems ROS Statement: Those systems with pertinent positive or pertinent negative responses have been documented in the HPI. ROS Other: All systems not noted in ROS Statement are negative. Past Medical History Past Medical History: Coronary Artery Disease (CAD), Chest Pain / Angina, Diabetes Mellitus, Hyperlipidemia Additional Past Medical History / Comment(s): urinary calculus, CATARACTS, NO LONGER ON MEDICATION FOR HTN, HAS HAD "SHOTS IN EYES FROM RETINAL SPECIALIST R/T BLEEDING IN EYES" History of Any Multi-Drug Resistant Organisms: None Reported Past Surgical History: Cardiac Valve Replacement, Coronary Bypass/CABG, Joint Replacement, Orthopedic Surgery Additional Past Surgical History / Comment(s): 2 VALVES, AND 3 BYPASSES, CLAVICLE SX , KNEE REPLACEMENT, cataract removed left eye Past Anesthesia/Blood Transfusion Reactions: Previous Problems w/ Anesthesia Additional Past Anesthesia/Blood Transfusion Reaction / Comment(s): "DOESNT ACT HIMSELF, WANTS TO GET UP AND ROAM AROUND" Past Psychological History: No Psychological Hx Reported Smoking Status: Former smoker Past Alcohol Use History: None Reported Past Drug Use History: None Reported - Past Family History Mother Family Medical History: No Reported History General Exam Limitations: no limitations General appearance: alert, in no apparent distress Head exam: Present: other (hematoma superior and lateral to the right eyebrow. scab on occipital region of scalp from previous injury.) Eye exam: Present: normal appearance, PERRL, EOMI (No pain with extraocular movement), periorbital swelling, periorbital tenderness (right periorbital tenderness and swelling; contusion developing). Absent: scleral icterus, conjunctival injection ENT exam: Present: other (Moderate edema along upper lip) Neck exam: Present: normal inspection, full ROM. Absent: tenderness, meningismus, lymphadenopathy Respiratory exam: Present: normal lung sounds bilaterally. Absent: respiratory distress, wheezes, rales, rhonchi, stridor, chest wall tenderness Cardiovascular Exam: Present: regular rate, normal rhythm, normal heart sounds. Absent: systolic murmur, diastolic murmur, rubs, gallop, clicks GI/Abdominal exam: Present: soft, normal bowel sounds. Absent: distended, tenderness, guarding, rebound, rigid Right Shoulder Exam: Present: normal inspection, full ROM. Absent: tenderness, swelling Elbow exam: Present: normal inspection, full ROM. Absent: tenderness, swelling Forearm Wrist exam: Present: other (small skin tear ) Hand Wrist exam: Present: other (few small scattered skin tears on hand) Vascular: Present: normal capillary refill, radial pulse. Absent: vascular compromise, Pallo Left Knee exam: Present: full ROM, abrasion (superficial abrasion bilateral knees). Absent: swelling Neurovascular tendon exam: Present: no vascular compromise Gait: observed and normal Right Knee exam: Present: full ROM, abrasion (superficial abrasion bilateral knees). Absent: tenderness, swelling Neurovascular tendon exam: Present: no vascular compromise. Absent: pulse deficit, abnormal cap refill, motor deficit, sensory deficit, tendon deficit Gait: observed and normal Neurological exam: Present: alert, oriented X3, CN II-XII intact, normal gait Expanded Patient oriented to: Present: person, place, time Speech: Present: fluid speech Cranial nerves: EOM's Intact: Normal, Nystagmus: Normal Cerebellar function: Finger to Nose: Normal Motor strength exam: RUE: 5, LUE: 5, RLE: 5, LLE: 5 Eye Response: (4) open spontaneously Motor Response: (6) obeys commands Verbal Response: (5) oriented Mikaela Total: 15 Psychiatric exam: Present: normal affect, normal mood Skin exam: Present: warm, dry, other (irregular shape 0.5cm laceration along border of upper lip ) Course Vital Signs 02/16/22 20:30 Temperature 98 F Pulse Rate 56 L Respiratory 16 Rate Blood Pressure 123/55 O2 Sat by Pulse 99 Oximetry - Reevaluation(s) Reevaluation #1: 02/17/22 03:12 Thorough history obtained and chart reviewed at length. Patient's daughter present at bedside. Discussed tetanus status. Shared decision making to update TD. Extremity wounds cleansed. Bacitracin dressings applied. Patient is instructed on wound care. He verbalizes understanding. Procedures - Laceration Laceration #1 Consent Obtained: verbal consent Indication: laceration Site: face Size (cm): 1 Description: irregular Depth: simple, single layer Anesthetic Used: lidocaine 1% Anesthesia Technique: local infiltration Amount (mls): 1 Pre-repair: wound explored, deep structures intact Type of Sutures: nylon Size of Sutures: 6-0 Number of Sutures: 2 Technique: simple, interrupted Patient Tolerated Procedure: well, no complications Additional Comments: Site was anesthetized and wound was cleansed. 2 simple interrupted sutures were placed just superior to Silvio border. Patient tolerated procedure well. No complications. Instructed on further wound care and suture removal. Medical Decision Making - Medical Decision Making This is a pleasant 81-year-old male with a past medical history of CAD and diabetes who presents to the emergency department for evaluation of injury sustained in a trip and fall. Upon exam, patient is well-appearing and in no acute distress. He does have multiple skin tears, abrasions, hematoma, and a small laceration. He is neurologically intact with no focal deficit. Patient does not take blood thinning medications. Multiple images were obtained with no acute findings. Patient was given a tetanus shot. 2 simple interrupted sutures were placed just superior to the vermilion border. Extremity wounds were cleansed and bacitracin dressings applied. He is instructed on wound care and directed on follow-up care for suture removal. Patient is discharged home with his daughter to follow up with his PCP for a recheck next week. Return parameters were discussed at length. Patient verbalizes understanding and agrees with this plan. Attending: Lisa. - Radiology Data Radiology results: report reviewed, image reviewed X-ray of the pelvis was obtained. Report was reviewed in its entirety. Impression per Dr. Osman is negative x-ray pelvis exam. No fracture seen. One view chest x-ray was obtained. Report was reviewed in its entirety. Impression per Dr. Trejo is hiatal hernia. No active cardiopulmonary disease. Normal heart. There is clearing of small pleural effusion compared to old exam. CT of facial bones was obtained. Report was reviewed in its entirety. Impression per Dr. Trejo is no fracture seen. There is right frontal scalp soft tissue swelling. Mucus retention cyst right maxillary sinus. CT of the brain and C-spine was obtained. Report was reviewed in its entirety. Impression per Dr. Trejo is spondylitic changes of the cervical spine. No fracture. Cerebral atrophy and chronic small vessel ischemia. No acute intracranial abnormality. There is progression of white matter disease compared to old exam. Disposition Clinical Impression: Facial hematoma, Laceration of face, Multiple abrasions Disposition: HOME SELF-CARE Condition: Stable Instructions (If sedation given, give patient instructions): Care For Your Stitches (ED), Laceration (ED), Fall Prevention for Older Adults (ED) Additional Instructions: Gently cleanse wounds wounds twice daily with mild soap and water. Apply antibiotic ointment, then cover as able. Monitor carefully for signs of infection including worsening redness, foul smelling drainage, or increased pain. I do expect there to be worsening bruising over the next 48-72 hours. Sutures to be removed in 3-5 days. Follow-up with your PCP for a wound recheck on Saturday. Return to the emergency department with any new, worsening, or concerning symptoms. Is patient prescribed a controlled substance at d/c from ED?: No Referrals: Liban Jha MD [Primary Care Provider] - 1-2 days Time of Disposition: 03:45
== END 2022-02-17 04:55 | disposition home or self-care (01) ==
LOC: EC 19:36
DX: S01.81XA Laceration without foreign body of other part of head, initial encounter (principal); E11.9 Type 2 diabetes mellitus without complications; E78.5 Hyperlipidemia, unspecified; Z23 Encounter for immunization; Z87.891 Personal history of nicotine dependence; Z88.6 Allergy status to analgesic agent; W19.XXXA Unspecified fall, initial encounter
CPT/HCPCS: 72170; 71045; 72125; 70486; 70450; 90715; 12011; 90471; 99284; J2001

== ENCOUNTER → 2022-02-27 | Outpatient (CLI) | payer MEDICARE | END | disposition home or self-care (01) | LOC: LABWHC1 13:54 | PROVIDERS: ATTEND Family Medicine | DX: E11.65 Type 2 diabetes mellitus with hyperglycemia (principal) | CPT/HCPCS: 36415; 83036 ==

== ENCOUNTER → 2022-06-20 | Outpatient (CLI) | payer MEDICARE ==
--- NOTE | 2022-06-20 14:58 | XR ---
EXAMINATION TYPE: XR chest 2V DATE OF EXAM: 06/20/2022 COMPARISON: 02/17/2022 TECHNIQUE: PA and lateral views submitted. HISTORY: Cough FINDINGS: The lungs are clear and there is no pneumothorax, pleural effusion, or focal pneumonia. Heart size normal and no overt failure. Osseous structures demonstrate hypertrophic and degenerative changes of the spine. Heart size mildly prominent and there is a moderate-sized hiatal hernia. Postoperative stefany nge. Coarsened interstitium seen. Hypertrophic degenerative change of the spine. IMPRESSION: 1. No acute process. 2. COPD correlate clinically for a hiatal hernia.
[2022-06-20 23:27] LABS: Basophils # (A) 0.08 X 10*3/uL (0.00-0.10); Basophils % (A) 1.1 %; Eosinophils # (A) 0.14 X 10*3/uL (0.04-0.35); HGB 10.6 g/dL (13.0-17.0); Immature Grans, Automated 0.6 %; Lymphocytes # (A) 1.39 X 10*3/uL (0.90-5.00); Lymphocytes % (A) 19.8 %; MCH 28.3 pg (27.0-32.0); MCHC 31.2 g/dL (32.0-37.0); MCV 90.9 fL (80.0-97.0); Mean Platelet Volume 11.1 fL (9.5-12.2); Monocytes # (A) 0.79 X 10*3/uL (0.20-1.00); Monocytes % (A) 11.2 %; NRBC Per 100 WBC 0 /100 WBCS (0.0-0.0); Neutrophils # (A) 4.59 X 10*3/uL (1.80-7.70); Neutrophils % (A) 65.3 %; Platelet Count 207 X 10*3/uL (140-440); RBC 3.74 X 10*6/uL (4.40-5.60); RDW 14.8 % (11.5-14.5); WBC 7.03 X 10*3/uL (4.50-10.00)
[2022-06-21 12:16] LABS: ALT 20 U/L (10-49); AST 20 U/L (14-35); African American GFR (CKD) 66.9 (60.0-200.0); Albumin 4.1 g/dL (3.8-4.9); Albumin/Globulin Ratio 1.76 (1.60-3.17); Alkaline Phosphatase 89 U/L (41-126); BUN/Creat Ratio 15.97 Ratio (12.00-20.00); Chloride 97 mmol/L (96-109); Chol/HDL Ratio 2.99 Ratio; Globulin 2.3 g/dL (1.6-3.3); Glucose 256 mg/dL (70-110); LDL Cholesterol,Calculated 91.9 mg/dL (0.0-131.0); Non-African American GFR(CKD) 57.8 (60.0-200.0); Potassium 5.3 mmol/L (3.5-5.5); Sodium 131 mmol/L (135-145); Total Protein 6.4 g/dL (6.2-8.2); VLDL Calculation 15.24 mg/dL (5.00-40.00)
== END | disposition home or self-care (01) ==
LOC: LABWHC1 14:05
PROVIDERS: ATTEND Internal Medicine Geriatric Medicine
DX: E11.9 Type 2 diabetes mellitus without complications (principal); K21.9 Gastro-esophageal reflux disease without esophagitis; F32.A Depression, unspecified; R05.9 Cough, unspecified
CPT/HCPCS: 36415; 71046; 80053; 80061; 83036; 84443; 85025

== ENCOUNTER → 2023-01-15 | Outpatient (CLI) | payer MEDICARE ==
[2023-01-15 15:00] LABS: Basophils # (A) 0.09 X 10*3/uL (0.00-0.10); Basophils % (A) 1.1 %; Eosinophils # (A) 0.24 X 10*3/uL (0.04-0.35); Eosinophils % (A) 2.9 %; HCT 33.9 % (39.6-50.0); HGB 11.3 d/dL (13.0-17.0); Lymphocytes % (A) 15.9 %; MCH 29.8 pg (27.0-32.0); MCHC 33.3 d/dL (32.0-37.0); MCV 89.4 FL (80.0-97.0); Mean Platelet Volume 11.1 FL (9.5-12.2); Monocytes # (A) 0.77 X 10*3/uL (0.20-1.00); Monocytes % (A) 9.4 %; NRBC Per 100 WBC 0 X 10*3/uL (0.00-0.01); Neutrophils # (A) 5.72 X 10*3/uL (1.80-7.70); Neutrophils % (A) 70.2 %; Platelet Count 213 X 10*3/uL (140-440); RBC 3.79 X 10*6/uL (4.40-5.60); RDW 14.9 % (11.5-14.5); WBC 8.16 X 10*3/uL (4.50-10.00)
[2023-01-15 15:06] LABS: Chol/HDL Ratio 3.34 Ratio; LDL Cholesterol,Calculated 67.4 mg/dL (0.0-131.0)
[2023-01-15 15:11] LABS: ALT 31 U/L (10-49); AST 27 U/L (14-35); Albumin 4.3 d/dL (3.8-4.9); Albumin/Globulin Ratio 1.72 Ratio (1.60-3.17); Alkaline Phosphatase 95 U/L (41-126); BUN/Creat Ratio 21.79 Ratio (12.00-20.00); Blood Urea Nitrogen 30.5 mg/dL (9.0-27.0); Calcium 9.7 mg/dL (8.7-10.3); Carbon Dioxide 23.5 mmol/L (21.6-31.8); Chloride 101 mmol/L (96-109); Globulin 2.5 d/dL (1.6-3.3); Glucose 256 mg/dL (70-110); Potassium 6.3 mmol/L (3.5-5.5); Sodium 133 mmol/L (135-145); Total Bilirubin 0.5 mg/dL (0.3-1.2); Total Protein 6.8 d/dL (6.2-8.2)
== END | disposition home or self-care (01) ==
LOC: LABWHC1 10:38
PROVIDERS: ATTEND Internal Medicine
DX: I25.10 Atherosclerotic heart disease of native coronary artery without angina pectoris (principal); E11.65 Type 2 diabetes mellitus with hyperglycemia; N40.0 Benign prostatic hyperplasia without lower urinary tract symptoms
CPT/HCPCS: 36415; 80053; 80061; 83036; 84153; 84443; 85025

== ENCOUNTER → 2023-04-02 | Outpatient (CLI) | payer MEDICARE ==
[2023-04-02 16:03] LABS: BUN/Creat Ratio 17.36 Ratio (12.00-20.00); Blood Urea Nitrogen 19.1 mg/dL (9.0-27.0); Calcium 9.8 mg/dL (8.7-10.3); Carbon Dioxide 26.5 mmol/L (21.6-31.8); Chloride 98 mmol/L (96-109); Glucose 165 mg/dL (70-110); Potassium 4.6 mmol/L (3.5-5.5); Sodium 137 mmol/L (135-145)
== END | disposition home or self-care (01) ==
LOC: LABWHC1 07:52
PROVIDERS: ATTEND Internal Medicine
DX: E11.65 Type 2 diabetes mellitus with hyperglycemia (principal)
CPT/HCPCS: 36415; 80048